=== PATIENT | male | born 1975 | race Caucasian/White ===

== ENCOUNTER → 2017-04-04 | Day surgery (SDC) | payer BC ==
[2017-03-27 07:45] VITALS: Ht 172.7 cm; Wt 84.1 kg
[~2017-04-04] VITALS: Ht 172.7 cm; Wt 84.1 kg
[~2017-04-04] MED LIST: ATROPINE SULFATE 0.1 MG/ML 5ML SYR IV PRN; BUPIVACAINE 0.5 % 5 MG/1 ML MPF 30ML VIAL ONE; CEFAZOLIN 2000MG IV PUSH 10 ML IV SCH; CEFAZOLIN SOD 1 GM VIAL ONE; CEPH500C2 PO; DEXAMETHASONE SOD INJ 4 MG/ML VIAL IV PRN; DEXAMETHASONE SOD INJ 4 MG/ML VIAL ONE; EpHEDrine SULFATE INJ 50 MG/ML AMP IV PRN; FENTANYL CITRATE INJ 50 MCG/1 ML 2 ML VIAL IV PRN; FENTANYL CITRATE INJ 50 MCG/1 ML 2 ML VIAL ONE; HYDR-5688 PO; HYDROCODONE/ACETAMOPHEN 5/325MG TAB PO PRN; KETOROLAC TROMETHAMINE 30 MG/ML VIAL IV. PRN; LABETALOL HCL IV 5 MG/ML 20ML IV PRN; LACTATED RINGER'S 1000ML 1,000 ML IV SCH; LIDOCAINE HCL 1% 20 ML VIAL ONE; LIDOCAINE HCL 2% 2 ML VIAL (20MG/ML) ONE; METOCLOPRAMIDE HCL INJ 5 MG/ML 2 ML VIAL IV PRN; MIDAZOLAM HCL 1 MG/ML 2ML VIAL ONE; MoRPHine SULFATE 10 MG/ML CARP/VIAL IV PRN; ONDA4TAB46 PO; ONDANSETRON INJ 2 MG/ML 2 ML VIAL IV PRN; ONDANSETRON INJ 2 MG/ML 2 ML VIAL ONE; PHENYLEPHRINE 100MCG/ML 5ML SYR IV PRN; PROPOFOL IV EMULSION 10 MG/ML 20 ML VIAL IV ONE; SODIUM CHLORIDE 0.9% 1000ML 1,000 ML IV SCH; SODIUM CHLORIDE 0.9% INJ 10 ML VIAL ONE
--- NOTE | 2017-04-04 06:54 | History & Physical Bridge - [place] ---
H&P Re-Evaluation Bridge Note: I have examined the patient, reviewed the History & Physical and in the interval since the performance of the History & Physical I have noted the following changes of clinical significance: No changes noted
--- NOTE | 2017-04-04 06:58 | Discharge Instructions-SurgCtr ---
Discharge Instructions Date of Service Apr 04, 2017. Visit Reason for Visit: Right Inguinal Hernia Discharge Discharge Diagnosis / Problem: Rt inguinal hernia Discharge Goals Goal(s): Decrease discomfort, Improve function, Improve disease control Activity Recommendations Activity Limitations: as noted below Lifting Limitations: no more than 25 pounds (for 4 weeks) Exercise/Sports Limitations: until after follow-up appointment May Resume Sexual Activity: when tolerated Shower/Bathe: keep incision dry (for 2 days- may shower over incision on Fri) Driving or Machine Use: wait 4-5 days Anesthesia . Post Anesthesia Instructions: If you have had General Anesthesia or IV Sedation: * Do not drive today. * Resume driving when surgeon permits. * Do not make important decisions or sign legal documents today. * Call surgeon for: 1. Temperature elevations greater than 101 degrees F. 2. Uncontrollable pain. 3. Excessive bleeding. 4. Persistent nausea and vomiting. 5. Medication intolerance (nausea, vomiting or rash). * For nausea and vomiting use only clear liquids such as: tea, soda, bouillon until nausea subsides, then gradually increase diet as tolerated. * If you have any concerns or questions, call your surgeon's office. If physician is unavailable and it is an emergency, call 911 or go to the nearest emergency room. . Instructions / Follow-Up Instructions / Follow-Up SPECIAL CARE INSTRUCTIONS: * Cover incisions and change daily for comfort/drainage. * Leave steri strips in place * May use ibuprofen for pain as tolerated. * Expect some swelling and bruising. Call your doctor if: * Temperature above 101 degrees * Pain not relieved by pain medicine ordered * There is increased drainage or redness from any incision * You have any unanswered questions or concerns [phone]. FOLLOW UP VISIT: If not already scheduled, please call the office for a follow-up visit. for next week- some suture removal OFFICE PHONE NUMBER: Dr. Amaro Office Diet Recommendations Home Diet: resume previous diet Pending Studies Studies pending at discharge: no Medical Emergencies . Who to Call and When: Medical Emergencies: If at any time you feel your situation is an emergency, please call 911 immediately. . Non-Emergent Contact Non-Emergency issues call your: Primary Care Provider, Surgeon . . "Provider Documentation" section prepared by Raleigh Amaro. .
--- NOTE | 2017-04-04 07:49 | [facility] Operative Report ---
Operative Report Operative Date Apr 04, 2017. Pre-Operative Diagnosis Right Inguinal hernia Post-Operative Diagnosis Same as pre-op Procedure(s) Performed Open Right Inguinal Hernia Repair with Mesh Surgeon Brass Instrument Repair Technician Surgeon(s) Guillermo Byers PA-C Estimated Blood Loss 5ML Findings direct Rt inguinal hernia Specimens None Anesthesia gem/ LMA Complication(s) None Disposition Recovery Room / PACU I attest to the content of the Intraoperative Record and any orders documented therein. Any exceptions are noted below.
--- NOTE | 2017-04-04 08:28 | OPERATIVE REPORT ---
DATE OF OPERATION: 04/04/2017 NAME OF OPERATION: Open right inguinal hernia repair. PREOPERATIVE DIAGNOSIS: Right inguinal hernia. POSTOPERATIVE DIAGNOSIS: Same with direct defects. STAFF SURGEON: Raleigh Amaro MD. SCHOOL VOCATIONAL EDUCATOR: Yunior Byers PA-C. ANESTHESIA: General. DESCRIPTION OF THE PROCEDURE: The patient was brought in the operating room and placed on the operating table in supine position. His lower abdomen was prepped and draped in usual fashion. Using 0.5% plain Marcaine, skin and subcutaneous tissue and also deep tissue were all anesthetized using the local anesthetic. Incision was made parallel to the inguinal ligament, carrying dissection down identifying the external oblique fibers, incising them along their length to the external ring. Ilioinguinal and iliohypogastric nerves were identified. Cord structures were mobilized. The patient had a direct hernia. It was reduced and a mesh plug placed. It was secured to surrounding tissue using 2-0 Ethibond suture. A relaxing incision was made in the internal oblique fascia superiorly. A mesh patch was then placed into the floor of the canal around the cord structures over the mesh plug, secured to surrounding tissue using 2-0 Ethibond suture. The area was irrigated with antibiotic solution. The external oblique fibers closed over the mesh around the cord structures using 2-0 Ethibond suture. The site was anesthetized with 0.5% plain Marcaine. Subcutaneous tissue reapproximated using 2-0 plain catgut suture and then the skin reapproximated using 4-0 nylon suture. Dressing applied and patient transferred to recovery room in stable condition. I attest to the content of the Intraoperative Record and any orders documented therein. Any exception s are noted below.
[2017-04-04 08:31] VITALS: TEMP 36.6
[2017-04-04 09:13] VITALS: BP 115/74; PULSE 68; O2SAT 100
--- NOTE | 2017-04-04 09:29 | Anesthesia Progress Nt - [facility] ---
Anesthesia Post Op Note Date & Time Apr 04, 2017 at 09:29 Vital Signs Pain Intensity: 0 Vital Signs Past 12 Hours Date Time Temp Pulse Resp B/P (MAP) Pulse Ox O2 Delivery O2 Flow Rate FiO2 04/04/17 09:13 68 16 115/74 (88) 100 Room Air 04/04/17 08:42 72 16 115/72 (86) 100 Room Air 04/04/17 08:31 109/76 04/04/17 08:31 36.6 68 18 109/76 99 Room Air 04/04/17 08:28 71 15 99 04/04/17 08:28 71 15 04/04/17 08:26 114/68 04/04/17 08:23 81 26 100 04/04/17 08:23 82 26 04/04/17 08:22 106/47 04/04/17 08:20 79 100 04/04/17 08:20 79 04/04/17 08:16 105/65 04/04/17 08:15 60 9 100 04/04/17 08:15 61 9 04/04/17 08:11 104/62 04/04/17 08:10 62 14 100 04/04/17 08:10 61 14 04/04/17 08:06 101/64 04/04/17 08:05 36.5 67 8 101/64 99 Diffusion Mask 10 04/04/17 06:51 51 16 106/69 (81) 04/04/17 06:49 56 16 82/52 (62) 99 Room Air 04/04/17 06:23 36.6 87 16 152/96 (114) 98 Room Air Notes Mental Status: alert / awake / arousable, participated in evaluation Pt Amnestic to Procedure: Yes Nausea / Vomiting: adequately controlled Pain: adequately controlled Airway Patency, RR, SpO2: stable & adequate BP & HR: stable & adequate Hydration State: stable & adequate Anesthetic Complications: no major complications apparent
== END | disposition home or self-care (01) ==
LOC: X.SURG 06:03
PROVIDERS: ATTEND Surgery
DX: K40.90 Unilateral inguinal hernia, without obstruction or gangrene, not specified as recurrent (principal); K21.9 Gastro-esophageal reflux disease without esophagitis; K59.00 Constipation, unspecified; D69.6 Thrombocytopenia, unspecified